=== PATIENT | female | born 1955 | race Hispanic/Latino ===

== ENCOUNTER 2017-10-24 14:10 | Emergency (ER) | payer BC ==
[2017-10-24 14:36] VITALS: BP 110/74; PULSE 79; RESP 16; TEMP 98; O2SAT 100
--- NOTE | 2017-10-24 16:09 | ED PDOC ---
HPI: Skin/Bite Injury Time Seen by Provider: 10/24/17 15:30 Chief Complaint (Nursing): Abnormal Skin Integrity Chief Complaint (Provider): Abnormal Skin Integrity History Per: Patient History/Exam Limitations: no limitations Location Of Injury: Left: Chest (rash on left breast) Additional Complaint(s): 62 year old female presents to ED with complaints of rash on left breast. Patient states she hikes frequently and is concerned about possibility of Lyme disease, prompting ED evaluation. Patient notes she had a negative Lyme test on June 2017. Patient denies ever seeing ticks on her body. PCP: Marisela Wilkerson Past Medical History Reviewed: Historical Data, Nursing Documentation, Vital Signs Vital Signs: Last Vital Signs Temp 98.0 F 10/24/17 14:33 Pulse 79 10/24/17 14:33 Resp 16 10/24/17 14:33 BP 110/74 10/24/17 14:33 Pulse Ox 100 10/24/17 14:33 - Medical History PMH: Arthritis (knee) - Family History Family History: States: Unknown Family Hx - Living Arrangements Living Arrangements: With Family - Social History Drugs: Denies - Home Medications Home Medications: Ambulatory Orders Medication Instructions Recorded Clotrimazole 1% Cream [Lotrimin 1%] 1 g TP TID 10 Days #1 tube 10/24/17 - Allergies Allergies/Adverse Reactions: Allergies Allergy/AdvReac Type Severity Reaction Status Date / Time Sulfa (Sulfonamide Allergy RASH Verified 10/24/17 14:33 Antibiotics) Review of Systems ROS Statement: Except As Marked, All Systems Reviewed And Found Negative Skin: Positive for: Rash (rash on left breast) Physical Exam - Reviewed Nursing Documentation Reviewed: Yes Vital Signs Reviewed: Yes - Physical Exam Appears: Positive for: Non-toxic, No Acute Distress Skin: Positive for: Normal Color (No physical findings. Mild discoloration on left breast, neither circular nor presence of central clearing), Warm, Dry. Negative for: Rash - ECG O2 Sat by Pulse Oximetry: 100 (RA) Pulse Ox Interpretation: Normal Medical Decision Making Medical Decision Makin Initial impression: normal exam Patient is asymptomatic of Lyme disease. Scribe Attestation: Documented by Alva Crenshaw, acting as a scribe for José Miguel Norman PA-C. Provider Scribe Attestation: All medical record entries made by the Scribe were at my direction and personally dictated by me. I have reviewed the chart and agree that the record accurately reflects my personal performance of the history, physical exam, medical decision making, and the department course for this patient. I have also personally directed, reviewed, and agree with the discharge instructions and disposition. Disposition - Clinical Impression Clinical Impression: Ringworm of body - Disposition Disposition: Routine/Home Disposition Time: 15:40 Condition: GOOD Prescriptions: Clotrimazole 1% Cream [Lotrimin 1%] 1 g TP TID 10 Days #1 tube Instructions: Ringworm, Athlete's Foot, and Jock Itch, Ringworm (DC) Forms: [employer] ([place])
== END 2017-10-24 16:31 | disposition home or self-care (01) ==
LOC: H.ER 14:10
DX: B35.4 Tinea corporis (principal)

== ENCOUNTER 2018-05-22 14:18 | Emergency (ER) | payer BC, OTHER ==
[2018-05-22 15:05] VITALS: BP 120/59; PULSE 88; RESP 16; TEMP 98.3; O2SAT 100
--- NOTE | 2018-05-22 15:45 | ED PDOC ---
HPI: Back Time Seen by Provider: 05/22/18 15:21 Chief Complaint (Nursing): Back Pain Chief Complaint (Provider): Back Pain History Per: Patient History/Exam Limitations: no limitations Additional Complaint(s): Tere Wallace is a 63 year old female with a past medical history of a herniated disk and ongoing knee arthritis, who presents to the emergency department for reevaluation. She states recently experiencing left hip pain with walking and getting up from a sitting position but symptoms have resolved now. Patient reports having no other medical complaints. PMD: Marisela Wilkerson Past Medical History Reviewed: Historical Data, Nursing Documentation, Vital Signs Vital Signs: Last Vital Signs Temp 98.3 F 05/22/18 15:02 Pulse 88 05/22/18 15:02 Resp 16 05/22/18 15:02 BP 120/59 L 05/22/18 15:02 Pulse Ox 100 05/22/18 15:02 - Medical History PMH: Arthritis (knee) - Surgical History Surgical History: No Surg Hx - Family History Family History: States: Unknown Family Hx - Home Medications Home Medications: Ambulatory Orders Medication Instructions Recorded Clotrimazole 1% Cream [Lotrimin 1%] 1 g TP TID 10 Days #1 tube 10/24/17 Naproxen 375 mg PO Q8 PRN #21 tablet 05/22/18 - Allergies Allergies/Adverse Reactions: Allergies Allergy/AdvReac Type Severity Reaction Status Date / Time Sulfa (Sulfonamide Allergy RASH Verified 05/22/18 15:00 Antibiotics) Review of Systems ROS Statement: Except As Marked, All Systems Reviewed And Found Negative Constitutional: Negative for: Fever Musculoskeletal: Positive for: Other (left hip pain) Physical Exam - Reviewed Nursing Documentation Reviewed: Yes Vital Signs Reviewed: Yes - Physical Exam Head Exam: Positive for: ATRAUMATIC, NORMOCEPHALIC Skin: Positive for: Normal Color, Warm, Dry Eye Exam: Positive for: Normal appearance, EOMI, PERRL ENT: Positive for: Normal ENT Inspection Neck: Positive for: Normal, Painless ROM, Supple Cardiovascular/Chest: Positive for: Regular Rate, Rhythm Respiratory: Positive for: Normal Breath Sounds. Negative for: Respiratory Distress Gastrointestinal/Abdominal: Positive for: Normal Exam, Bowel Sounds, Soft. Negative for: Tenderness Pelvic Exam: Negative for: Other (tenderness) Back: Positive for: Normal Inspection. Negative for: L CVA Tenderness, R CVA Tenderness, Vertebral Tenderness Extremity: Positive for: Normal ROM (without any limitations ). Negative for: Tenderness, Deformity, Swelling Neurologic/Psych: Positive for: Alert, Oriented (x3) - ECG O2 Sat by Pulse Oximetry: 100 (RA) Pulse Ox Interpretation: Normal - Progress ED Course And Treament: xry of left hip: no fx/ no signs of arthritis Medical Decision Making Medical Decision Making: Time: 15:33 Initial plan: --HIP min 2 V W/ Pelvis right Scribe Attestation: Documented by William Ibarra, acting as a scribe for Facundo Vides PA-C Provider Scribe Attestation: All medical record entries made by the Scribe were at my direction and personally dictated by me. I have reviewed the chart and agree that the record accurately reflects my personal performance of the history, physical exam, medical decision making, and the department course for this patient. I have also personally directed, reviewed, and agree with the discharge instructions and disposition. Disposition - Clinical Impression Clinical Impression: Hip pain, left - Patient ED Disposition Is Patient to be Admitted: No - Disposition Referrals: Radha Conley MD [Staff Provider] - [facility] [Outside] Disposition: Routine/Home Disposition Time: 16:32 Condition: FAIR Prescriptions: Naproxen 375 mg PO Q8 PRN #21 tablet PRN Reason: Pain, Moderate (4-7) Instructions: Hip Pain (DC)
--- NOTE | 2018-05-22 16:39 | RAD ---
PROCEDURE: Left Hip X-ray Radiographs. HISTORY: LEFT HIP PAIN COMPARISON: None. FINDINGS: BONES: AP view of the pelvis and frontal and frogleg views of the left hip were performed for left hip pain. No fracture is seen. No femoral head flattening is noted. There are however degenerative changes seen in the left hip region and right hip region. Pubic rami are intact. Sacroiliac joints are unremarkable. Trochanters are intact. JOINTS: DJD. SOFT TISSUES: Normal. OTHER FINDINGS: None. IMPRESSION: No evidence of left hip fracture. DJD left and right hip.
== END 2018-05-22 16:43 | disposition home or self-care (01) ==
LOC: H.ER 14:18
DX: M25.552 Pain in left hip (principal); M17.10 Unilateral primary osteoarthritis, unspecified knee